=== PATIENT | male | born 1950 | race African-American/Black ===

== ENCOUNTER 2017-09-18 05:16 | Inpatient (IN) ==
[2017-09-18] MEDS ORDERED: CEFAZOLIN 1 G INJECTION IVP ONE (05:27)
[2017-09-18 05:43] VITALS: BMI 28.5
[2017-09-18] MEDS ORDERED: LIDOCAINE 1% (10mg/ml) 2mL INJ PF SDV ID ONE (06:00)
[2017-09-18] MEDS ORDERED: ACETAMINOPHEN 500 MG TABLET PO ONE (06:00)
[2017-09-18] MEDS ORDERED: FAMOTIDINE PB 20 MG/50 ML BAG IV ONE (06:00)
[2017-09-18] MEDS ORDERED: METOCLOPRAMIDE 10mg/2ml INJECTION IVP ONE (06:00)
[2017-09-18] MEDS ORDERED: TRANEXAMIC ACID 1,000 MG in NS 100 ML IV ONE ×2 (06:00→07:00)
[2017-09-18] MEDS ORDERED: DEXAMETHASONE 4 MG/ML INJECTION IVP ONE (06:00)
[2017-09-18] MEDS ORDERED: ONDANSETRON 4 MG/2 ML INJECTION IVP ONE (06:00)
[2017-09-18] MEDS: LR 1,000 ML IV SCH ×2 (06:08→08:27)
[2017-09-18] MEDS: NOZIN NASAL SWAB NAS SCH ×5 (06:10→21:03)
[2017-09-18] MEDS ORDERED: VANCOMYCIN 1,000 MG INJECTION ONE (06:16)
--- NOTE | 2017-09-18 06:40 | Anesthesia Preoperative Report ---
Anesthesia Preoperative Record - Date and Time Date: 09/18/17 Preoperative Diagnosis: Rt TKA M17.11 Proposed Procedure: Right TKA NPO Since Date: 09/18/17 NPO Since Time: 00:00 Allergies/Adverse Reactions: Allergies Allergy/AdvReac Type Severity Reaction Status Date / Time No Known Allergies Allergy Verified 09/18/17 05:49 - Vital Signs Vital Signs: Temperature 98.3 F 09/18/17 05:42 Pulse Rate 75 09/18/17 05:53 Respiratory Rate 16 09/18/17 05:42 Blood Pressure 142/95 H 09/18/17 06:14 Pulse Oximetry 95 09/18/17 05:42 Height and Weight: Height 1.77 m Weight 89.1 kg Body Mass Index 28.5 - Medications Inpatient Medications: Current Medications Epinephrine HCl 0.25 mg/Bupivacaine HCl 30 ml/Ketorolac Tromethamine 60 mg/ Sodium Chloride 62.25 mls @ 1 mls/hr OPSITE INTRAOP ONE PRN Reason: Protocol Stop: 09/20/17 22:14 Tranexamic Acid 1,000 mg/ (Sodium Chloride) 110 mls @ 660 mls/hr IV INTRAOP ONE Stop: 09/18/17 07:09 Lactated Ringer's (Lactated Ringers) 1,000 mls @ 50 mls/hr IV .Q20H [facility] Last Admin: 09/18/17 06:08 Dose: 50 mls/hr Isopropyl Alcohol (Nozin Nasal Swab) 1 each MARY Q1M ELIDA Stop: 09/18/17 09:03 Last Admin: 09/18/17 06:20 Dose: 1 each Sodium Chloride (Iv Flush) 10 - 80 ml IV PRN PRN PRN Reason: Flushing Home Medications: Home Medications Medication Instructions Recorded Confirmed Type ergocalciferol (vitamin D2) 50,000 50,000 unit PO DAILY #2 cap 09/12/17 Rx unit capsule Is Patient on Beta James?: No - Medical History Respiratory: Reports: Bronchitis (annually) Cardiovascular: Reports: Hypertension Neuro/Musculoskeletal: Reports: HX.MS.OSAR - Surgical History GI Surgery/Treatments: Reports: Colonoscopy, EGD Musculoskeletal Surgery/Tx: Reports: Knee Arthroscopy (Lt), Total Knee Replacement (Lt TKA 2004) Anesthesia Reactions: None Hx Family Anesthesia Reaction: No History of Motion Sickness: No - Social History Smoking Status: Never smoker Substance Use Type: does not use Alcohol Intake: current Alcohol Intake Frequency: a few times a week - Pertinent Findings EKG: Sinus Rhythm - Physical Exam Respiratory Exam: Present: lungs clear Cardiovascular Exam: Present: regular rate and rhythm - Airway Assessment Mallampati Score: II TMD: 3 Fingerbreadths Neck Extension: fair Overall Assessment: no airway concerns - ASA ASA Score: 2 - Plan Regional/Trunk Block: Spinal - Discussion Discussion: Discussed risks/options/alternatives of anesthesia and questions answered. Patient consents. Nursing pain assessment noted. Present for Discussion: family member Attestation Statement: Prior to the delivery of any anesthetic medication, I examined the patient, developed the plan, obtained the patient's consent and discussed the risk and benefits of the procedure with the patient/guardian. - Additional Information Seen by Anesthesia: Yes
[2017-09-18] MEDS ORDERED: MIDAZOLAM 2mg/2ml INJECTION ONE (07:04)
[2017-09-18] MEDS ORDERED: FentaNYL 250 MCG/5 ML INJECTION ONE (07:04)
[2017-09-18] MEDS ORDERED: BUPIVACAINE 0.5% (5mg/ml) PF 30ml INJ SDV ONE (07:06)
[2017-09-18] MEDS ORDERED: LIDOCAINE 2% (100mg/5mL) 5ml PF SDV ONE (07:06)
[2017-09-18] MEDS ORDERED: EPHEDRINE 50mg/ml INJECTION ONE (07:31)
[2017-09-18] MEDS ORDERED: EPINEPHrine PF 0.25 MG, BUPIVACAINE 0.25% PF 30 ML, KETOROLAC INJ 60 MG in NS 30 ML OPSITE ONE (08:00)
[2017-09-18] MEDS ORDERED: VANCOMYCIN 1,000 MG INJECTION IAR ONE (08:01)
[2017-09-18] MEDS ORDERED: PROPOFOL 500 MG/50 ML VIAL ONE (08:01)
[2017-09-18] MEDS ORDERED: PROPOFOL 20 ML ONE (08:54)
[2017-09-18] MEDS ORDERED: SALINE FLUSH 10ml SYRINGE IV PRN (08:58)
--- NOTE | 2017-09-18 09:39 | XRay Report ---
Indication: FOREIGN BODY CHECK IN OR PROCEDURE: XR knee RT 2V: Encounter: Initial Comparison: August 03, 2017 Findings: Postoperative changes of right total knee replacement are seen. There is expected postoperative subcutaneous gas. No evidence of hardware failure or acute fracture. No retained radiopaque surgical instruments or sponges. Overlying material causing artifact. Impression: New right total knee prosthesis without evidence of immediate complication. .
--- NOTE | 2017-09-18 09:44 | Anesthesia Procedure Note ---
Peripheral Nerve Blockade - Procedure Physician: Himanshu Villalpando MD Date: 09/18/17 Surgical Procedure: Righ total knee Discussion: Discussed risks/options/alternatives of anesthesia and questions answered. Patient consents. Nursing pain assessment noted. Block Start: 09:38 Block Stop: 09:41 Blocked Employed: Adductor Canal, Single Injection Approach: Right Side Confirmed Patient: Consent IV Sedation: No Initial Vital Signs: Temperature 98.3 F 09/18/17 05:42 Temperature Source Oral 09/18/17 05:42 Pulse Rate 82 09/18/17 05:42 Respiratory Rate 16 09/18/17 05:42 Blood Pressure 146/111 H 09/18/17 05:42 Blood Pressure Mean 122 09/18/17 05:42 Blood Pressure Position Sitting 09/18/17 05:42 Pulse Oximetry 95 09/18/17 05:42 Oxygen Delivery Method 09/18/17 05:42 Post Vital Signs: Temperature 98.3 F 09/18/17 05:42 Pulse Rate 75 09/18/17 05:53 Respiratory Rate 16 09/18/17 05:42 Blood Pressure 142/95 H 09/18/17 06:14 Pulse Oximetry 95 09/18/17 05:42 Initial Pain Pain Score: 0 Post Block Pain Score: 0 Ultrasound Used?: No - Injectate Bupivacaine (%): 0.5 Bupivacaine (mL): 25 Injection: Injection made incrementally with constant monitoring and aspiration every ml
--- NOTE | 2017-09-18 10:22 | XRay Report ---
Indication: postoperative image PROCEDURE: XR knee RT 2V: Encounter: Initial Comparison: September 18, 2017 and August 03, 2017 Findings: Postoperative changes of right total knee replacement are seen. There is expected postoperative subcutaneous gas. No evidence of hardware failure or acute fracture. No retained radiopaque surgical instruments or sponges. Overlying material causing artifact. Impression: New right total knee prosthesis without evidence of immediate complication. .
--- NOTE | 2017-09-18 10:31 | Operative Note ---
- Procedure Preoperative Diagnosis: Right knee primary degenerative joint disease Postoperative Diagnosis: Same as preoperative diagnosis. Surgeon: Kiko Villalpando MD Early Childhood Education Worker: Kimberly Suresh Complications: None. Anesthesia: Spinal. Estimated Blood Loss: See Anesthesia Record. Fluids: Please see Anesthesia Record. Description of Procedure: Mr. Allen and his right knee were identified and marked in the preoperative holding area. He was brought back to the operating suite. Spinal anesthetic was administered and he was placed supine on the operating table. The right lower extremity was prepped and draped in my normal sterile fashion. Timeout was performed. The HipLogiq robotic arm was used during the surgery. He had a fixed varus deformity with a slight flexion contracture. A standard anterior midline incision followed by medial parapatellar arthrotomy was performed. Anterior fat pad and meniscus were removed. He had complete loss of cartilage and over the medial femoral condyle. The patella was everted and a patellar osteotomy was performed leaving 14 mm of bone. Tibial and femoral arrays and checkpoints were placed both within the original incision. The bone was then registered with the HipLogiq robot. Osteophytes were removed and gaps were captured both 90 and 0 with correction. Hip[employer]iq robotic software was utilized to obtain an 18 mm gaps in flexion and 18 mm Medially in extension and 19 mm gap laterally and extension. The [employer]iq robotic arm was then used to assist with the bone cuts. Posterior osteophytes and remaining meniscus were removed. Trial components were placed. We used a 4 femur and a 5 tibia with a 9 mm spacer and a 32 patella. He tracked well and was well balanced throughout range of motion. The tibia was stamped at the proper rotation. Trial components fit well and bone quality was adequate so we proceeded with press-fit components. Components were press-fit into place. A final spacer was also placed. The knee was ranged one more time to ensure good stability, balance and patellar tracking. 1 g of vancomycin powder was then placed into the knee joint. The capsulotomy was then closed with #1 Vicryl. I then left my certified dental assistant to close the subcutaneous tissue with 2-0 Vicryl and a running 0 V-lock. Running 4-0 Monoderm will be used in the subcuticular layer. After drapes are removed patient will be taken to recovery room under the care of anesthesia.
[2017-09-18] MEDS ORDERED: DiphenhydrAMINE 25 MG CAPSULE PO PRN (10:45)
[2017-09-18] MEDS ORDERED: NOZIN NASAL SWAB NAS ONE (10:45)
[2017-09-18] MEDS ORDERED: LORazepam 1 MG TABLET PO PRN (10:45)
[2017-09-18] MEDS ORDERED: DiphenhydrAMINE 50 MG/ML INJECTION IVP PRN (10:45)
[2017-09-18] MEDS ORDERED: ONDANSETRON 4 MG/2 ML INJECTION IVP PRN (10:45)
[2017-09-18] MEDS: NS 1,000 ML IV SCH (11:08)
--- NOTE | 2017-09-18 12:29 | Anesthesia Postoperative Note ---
- Date and Time Date: 09/18/17 Time: 12:29 - Status Patient Participated in Evaluation: Patient Participated in Person Vital Signs: Temperature 97.4 F 09/18/17 10:45 Pulse Rate 49 L 09/18/17 11:30 Respiratory Rate 20 09/18/17 10:59 Blood Pressure 108/72 09/18/17 11:30 Pulse Oximetry 96 09/18/17 11:30 Respiratory Function: Airway Patent Cardiovascular Function: Regular Pulse EKG: Sinus Rhythm Mental Status: Alert and Oriented Pain Intensity: 0 Hydration: Taking PO Fluids Complications During Recover: None Apparent - Follow-Up Instructions Instructions: Per Surgeon
[2017-09-18] MEDS: ACETAMINOPHEN 325 MG TABLET PO SCH ×3 (14:08→21:03)
[2017-09-18] MEDS: Oxycodone *IR* 5 MG TABLET PO PRN ×2 (14:08→17:33)
[2017-09-18] MEDS: CEFAZOLIN 2 G in NS 100 ML IV SCH ×2 (14:47→23:01)
[2017-09-18] MEDS ORDERED: SENNOSIDES 8.6 MG TABLET PO SCH (21:00)
[2017-09-18] MEDS: ASPIRIN *EC* 81 MG TABLET PO SCH (21:02)
[2017-09-18] MEDS: NAPROXEN 220 MG TABLET PO SCH (21:02)
[2017-09-18] MEDS: DOCUSATE SODIUM 100 MG CAPSULE PO SCH (21:02)
[2017-09-19] MEDS: NS 1,000 ML IV SCH ×2 (00:43→13:39)
[2017-09-19] MEDS: NOZIN NASAL SWAB NAS SCH ×2 (04:58→05:12)
[2017-09-19 07:44] VITALS: RESP 16
--- NOTE | 2017-09-19 08:43 | Orthopedic Progress Note ---
Date: Date: 09/19/17 Time: 837 Subjective/Severity of Illness: "Maged" is sitting up in chair after bath this morning. States he did well overnight, pain has been well controlled on Litzy. Hgb 12.2, VSS. Denies any CP, SOA, nausea this morning. Orthopedic Exam Vital signs: Temperature 97.7 F 09/19/17 07:43 Pulse Rate 76 09/19/17 07:43 Respiratory Rate 16 09/19/17 07:43 Blood Pressure 180/102 H 09/19/17 07:43 Pulse Oximetry 96 09/19/17 07:43 - Constitutional General Appearance: Present: alert, orientated x3, no acute distress, well developed, well nourished - Respiratory Exam Present: non-labored - Cardiovascular Exam Present: Regular Rate/Rhythm - Extremities Exam Present: pulses intact. Absent: calf tenderness - Dressing Dressing: dry, intact, no drainage Comments: mepliex dressing to right knee - Integumentary Exam Present: pink, warm, dry - Neurological Exam Present: intact to light touch, no deficits - Psychiatric Exam Present: alert, oriented, normal affect - Labs Result Diagrams: 09/19/17 04:12 09/19/17 04:12 Abnormal lab results 09/19/17 09/19/17 Range/Units 04:12 04:12 Hgb 12.2 L (13.5-17.5) GM/DL Hct 38.3 L (41-53) % Chloride 109 H (98-107) MEQ/L H & H 09/19/17 Range/Units 04:12 Hgb 12.2 L (13.5-17.5) GM/DL Hct 38.3 L (41-53) % Orthopedic Assessment and Plan (1) Osteoarthritis of right knee Status: Chronic Assessment and Plan: Current anti-coagulation protocol with ASA 81mg BID for 6 weeks for VTE prophylaxis. SCD's for added protection. PT/OT services to improve independent function. Discharge Planning per Case Management. - Anticoagulation Therapy Anticoagulation: ASA 81 mg PO BID x6 weeks Hospital Course Summary Disclaimer: The visit summary below is not to be considered part of the above Progress Note.
[2017-09-19] MEDS ORDERED: POLYETHYL GLYCOL 3350 17gm PACKET PO SCH (09:00)
[2017-09-19] MEDS ORDERED: SENNOSIDES 8.6 MG TABLET PO PRN (09:32)
[2017-09-19] MEDS: NAPROXEN 220 MG TABLET PO SCH (10:33)
[2017-09-19] MEDS: DOCUSATE SODIUM 100 MG CAPSULE PO SCH (10:33)
[2017-09-19] MEDS: ASPIRIN *EC* 81 MG TABLET PO SCH (10:33)
[2017-09-19] MEDS: ACETAMINOPHEN 325 MG TABLET PO SCH (10:34)
[2017-09-19] MEDS: Oxycodone *IR* 5 MG TABLET PO PRN (10:38)
[2017-09-19 12:06] VITALS: BP 149/100; PULSE 84; TEMP 97.1; O2SAT 98
--- NOTE | 2017-09-19 13:39 | Discharge Summary ---
Orthopedic Discharge Info Date of admission: 09/18/17 05:16 Anticipated date of discharge: 09/19/17 Attending Physician: Himanshu Villalpando MD Consults: 09/18/17 05:26 Consult to Anesthesiology [CONS] Routine Reason For Exam: Preoperative Assessment 09/18/17 10:45 Case Management Consult [CONS] Routine Reason For Exam: Discharge Planning DME-Walker [CONS] Routine Height: 5 ft 9.5 in Weight: 89.1 kg Total Joint Outpatient Therapy [CONS] Routine Comment: Remove dressing in 2 weeks - Discharge Diagnosis (1) Osteoarthritis of right knee Status: Chronic - Procedures Procedures: Rt TKA - Laboratory Result Diagrams: 09/19/17 04:12 09/19/17 04:12 Laboratory: Abnormal lab results 09/19/17 09/19/17 Range/Units 04:12 04:12 Hgb 12.2 L (13.5-17.5) GM/DL Hct 38.3 L (41-53) % Chloride 109 H (98-107) MEQ/L H & H 09/19/17 Range/Units 04:12 Hgb 12.2 L (13.5-17.5) GM/DL Hct 38.3 L (41-53) % Orthopedic Discharge HPI - HPI Comments This patient was admitted for elective surgical tx of end stage degenerative joint disease that failed to respond to conservative treatment. Further details of this is found in the admission H&P. Orthopedic Hospital Course Hospital course: 09/19/17 13:39 After appropriate preoperative clearance and signing of operative consent, the patient was given IV antibiotics, according to orthopedic protocol. The patient was taken to the operating room and underwent elective right total knee arthroplasty. Following surgery, antibiotics were discontinued less than 24 hours according to joint protocol. Aspirin was initiated and SCDs added for DVT prevention. The dressing was clean, dry, and intact. Pain control was obtained via multimodal approach. Bowel motivation addressed with scheduled and PRN medications. Early mobilization was initiated through PT services. Discharge arrangements made by a collaborative effort between the patient and Case Management. Blood pressures have been elevated and he was restarted on his home meds. He will f/u with his PCP if pressures remain elevated. Follow-up is scheduled in 2-3 weeks. Discharge instructions given by orthopedic providers and nursing staff at discharge. Discharge condition was good. Care extended to > 2 midnight stays?: No Discharge Plan - Med Rec/Dispo Referrals/Follow Up: Himanshu Villalpando MD [Physician] - 10/10/17 1:45 pm Lorna Instructions: [facility] Postop Instructions Additional Instructions: CONTINUCARE ON 09/20/2017 AT 2:00PM FOR PHYSICAL THERAPY EVAL. PHONE [phone] Prescriptions: New Acetaminophen [Tylenol] 650 mg PO QID tablet Aspirin *EC* [Ecotrin] 81 mg PO BID tablet Docusate Sodium [Colace] 100 mg PO BID capsule Milk of Magnesia [Mom] 30 ml PO DAILY udc Naproxen [Aleve (Naproxen) 220 mg] 440 mg PO BID tablet PEG 3350 17gm PACKET [Miralax] 17 gm PO DAILY packet Oxycodone *IR* [Roxicodone *Ir*] 5 - 15 mg PO Q3H PRN #60 tab PRN Reason: Breakthrough Pain Continue ergocalciferol (vitamin D2) 50,000 unit capsule 50,000 unit PO DAILY #2 cap - Disposition 01 Discharged Home, Self-Care - Dismissal Complete Discharge Instructions are:: Complete
[2017-09-20] MEDS ORDERED: BISACODYL 10 MG SUPPOSITORY RECTALLY SCH (20:00)
== END 2017-09-19 15:00 | disposition home or self-care (01) | DRG 470 ==
LOC: NMC.PERIOP 05:16 → SRG 10:32
PROVIDERS: ADMIT Orthopaedic Surgery; ATTEND Orthopaedic Surgery